=== PATIENT | male | born 1975 | race Caucasian/White ===

== ENCOUNTER 2021-01-01 18:16 | Emergency (ER) | payer SELFPAY ==
[~2021-01-01 18:16] MED LIST: CLEOCIN HCL300 MG PO
== END 2021-01-01 19:54 | disposition home or self-care (01) ==
LOC: ER1 18:16
DX: R20.2 Paresthesia of skin (principal); F17.210 Nicotine dependence, cigarettes, uncomplicated; Z88.0 Allergy status to penicillin
CPT/HCPCS: 93005; 99284